=== PATIENT | female | born 1945 | race Caucasian/White ===

== ENCOUNTER 2017-01-16 08:40 | Outpatient (CLI) | payer OTHER | END 2017-01-16 08:41 | LOC: NAVSJIPCSP 08:40 | PROVIDERS: ATTEND Internal Medicine | DX: E78.5 Hyperlipidemia, unspecified (principal) | CPT/HCPCS: 36415; 80061 ==

== ENCOUNTER 2017-02-14 19:38 | Emergency (ER) | payer MEDICARE, OTHER ==
[2017-02-14] MEDS ORDERED: Metoclopramide HCl 10 MG/2 ML VIAL ONE (20:47)
[2017-02-14] MEDS ORDERED: Ketorolac Tromethamine 30 MG/ML VIAL ONE (20:47)
[2017-02-14] MEDS ORDERED: diphenhydrAMINE HCl 50 MG/ML 1 ML VIAL ONE (20:47)
[2017-02-14] MEDS ORDERED: Dexamethasone 4 mg/ml Vial ONE (22:30)
== END 2017-02-14 22:42 | disposition home or self-care (01) ==
LOC: NAV ERS 19:38
DX: G43.919 Migraine, unspecified, intractable, without status migrainosus (principal); I10 Essential (primary) hypertension; F17.210 Nicotine dependence, cigarettes, uncomplicated; Z79.899 Other long term (current) drug therapy
CPT/HCPCS: 96361; 96372; 96374; 96375; J1100; J1200; J1885; J2765

== ENCOUNTER 2017-06-26 09:09 | Outpatient (CLI) | payer MEDICARE ==
[2017-06-26 12:33] LABS: Bilirubin Negative (Negative); Blood, Urine Negative (Negative); Clarity Slightly Cloudy (Clear); Glucose, Urine (Dipstick) Negative (Negative); Leukocyte Large (Negative); Nitrite Positive (Negative); Protein, Urine (Dipstick) Negative (Neg-Trace); Specific Gravity, Urine 1.015 (1.005-1.030); Urobilinogen 0.2 mg/dL (0.2-1.0)
[2017-06-26 12:56] LABS: Cardiac Risk 4.1 (Less than 4.5)
[2017-06-26 14:29] LABS: Bacteria/HPF 2+ HPF (None Seen); RBC/HPF 0-3 HPF (0-3); Squamous Epithelial 0-3 HPF (0-3); WBC/HPF 21-50 HPF (0-3)
== END 2017-06-26 09:10 | disposition home or self-care (01) ==
LOC: NAVSJIPCSP 09:09
PROVIDERS: ATTEND Internal Medicine
DX: E78.5 Hyperlipidemia, unspecified (principal); Z79.899 Other long term (current) drug therapy; N39.0 Urinary tract infection, site not specified
CPT/HCPCS: 36415; 80061; 81003; 81015; 87077; 87086

== ENCOUNTER 2017-11-20 15:11 | Emergency (ER) | payer MEDICARE ==
--- NOTE | 2017-11-20 16:20 | RAD ---
PA AND LATERAL CHEST 11/20/17 HISTORY: Shortness of breath and cough. Heart size is within normal limits. There are atherosclerotic changes of the aorta. The lungs are bhavna ar of infiltrates. IMPRESSION: No active intrathoracic disease. POS: [facility]
== END 2017-11-20 16:55 | disposition home or self-care (01) ==
LOC: NAV ERS 15:11
DX: J11.1 Influenza due to unidentified influenza virus with other respiratory manifestations (principal); R06.00 Dyspnea, unspecified; J31.0 Chronic rhinitis; I10 Essential (primary) hypertension; G43.909 Migraine, unspecified, not intractable, without status migrainosus; F17.210 Nicotine dependence, cigarettes, uncomplicated; Z79.899 Other long term (current) drug therapy
CPT/HCPCS: 71020

== ENCOUNTER 2017-11-26 13:08 | Emergency (ER) | payer MEDICARE ==
[2017-11-26] MEDS ORDERED: Sodium Chloride 0.9% 1,000 ML ONE (13:50)
[2017-11-26 14:39] LABS: ALT (SGPT) 53 U/L (8-55); AST (SGOT) 26 U/L (5-34); Albumin 4.2 g/dL (3.4-4.8); Alkaline Phosphatase 143 U/L (40-150); Anion Gap 16 mmol/L (10-20); BUN (Urea Nitrogen) 10 mg/dL (9.8-20.1); Bilirubin, Total 0.4 mg/dL (0.2-1.2); Calc. Creatinine Clearance 0 mL/min (70-130); Carbon Dioxide 23 mmol/L (23-31); Chloride 102 mmol/L (98-107); Estimated GFR-MDRD 74; Globulin 4.1 g/dL (2.4-3.5); Glucose 95 mg/dL (83-110); Potassium 3.4 mmol/L (3.5-5.1); Protein, Total 8.3 g/dL (6.0-8.3); Sodium 138 mmol/L (136-145)
[2017-11-26 14:41] LABS: CKMB 0.6 ng/mL (0-6.6); Troponin I Less than 0.010 ng/mL (< 0.028)
[2017-11-26] MEDS ORDERED: Sodium Chloride 0.9% 100 ML ONE (15:02)
[2017-11-26] MEDS ORDERED: cefTRIAXone\\ROCEPHIN 1 GM VIAL ONE (15:02)
[2017-11-26] MEDS ORDERED: methylPREDNISolone Sod Succ/PF 125 MG/2 ML VIAL ONE (15:02)
--- NOTE | 2017-11-26 15:03 | RAD ---
TWO VIEWS CHEST: Date: 11-26-17 Provided Clinical History: Cough. FINDINGS: Comparison 11-20-17. Cardiac and mediastinal silhouette is unchanged in appearance. Vascular calcification involves the ao rtic arch. No focal consolidation, pleural fluid or pneumothorax apparent. IMPRESSION: No evidence for an acute cardiopulmonary process. POS: [facility]
[2017-11-26 15:11] LABS: #Basophils 0.1 thou/uL (0.0-0.2); #Eosinphils 0.1 thou/uL (0.0-0.7); #Lymphocytes 3.2 thou/uL (1.20-3.40); #Monocytes 0.6 thou/uL (0.11-0.59); #Neutrophils 7.5 thou/uL (1.40-6.50); %Basophils 0.6 % (0.0-1.0); %Eosinophils 0.6 % (0.0-10.0); %Lymphocytes 28.3 % (21.0-51.0); %Monocytes 5.2 % (0.0-10.0); %Neutrophils 65.3 % (42.0-75.0); Hemoglobin 13.1 g/dL (12.0-16.0); Mean Corpuscular HGB CONC 33.8 g/dL (32.0-36.0); Mean Corpuscular Hemoglobin 29.6 pg (27.0-31.0); Mean Corpuscular Volume 87.7 fl (81.0-99.0); Mean Platelet Volume 6.8 fL (7.4-10.4); Platelet Count 493 thou/uL (130-400); RBC Distribution Width 10.5 % (11.5-14.5); Red Blood Cell (RBC) Count 4.43 mill/uL (4.20-5.40); White Blood Cell (WBC) Count 11.4 thou/uL (4.8-10.8)
[2017-11-26 17:10] LABS: Bilirubin Negative (Negative); Blood, Urine Trace (Negative); Clarity Clear (Clear); Glucose, Urine (Dipstick) Negative (Negative); Leukocyte Large (Negative); Nitrite Negative (Negative); Protein, Urine (Dipstick) Negative (Neg-Trace); Urobilinogen 0.2 mg/dL (0.2-1.0)
[2017-11-26 17:20] LABS: RBC/HPF 0-3 HPF (0-3)
[2017-11-26 17:21] LABS: Bacteria/HPF Rare-Few HPF (None Seen); Squamous Epithelial 0-3 HPF (0-3)
== END 2017-11-26 16:12 | disposition home or self-care (01) ==
LOC: NAV ERS 13:08
DX: J20.9 Acute bronchitis, unspecified (principal); J11.1 Influenza due to unidentified influenza virus with other respiratory manifestations; F17.210 Nicotine dependence, cigarettes, uncomplicated; G43.909 Migraine, unspecified, not intractable, without status migrainosus; I10 Essential (primary) hypertension; Z79.899 Other long term (current) drug therapy
CPT/HCPCS: 71020; 80053; 81003; 81015; 82553; 83605; 83880; 84484; 85025; 85379; 87040; 93005; 94640; 94760; 96361; 96365; 96375; J0696; J2930; J7050; J7620

== ENCOUNTER 2018-04-01 10:38 | Emergency (ER) | payer MEDICARE ==
[2018-04-01 11:24] LABS: Bilirubin Negative (Negative); Blood, Urine Negative (Negative); Clarity Clear (Clear); Glucose, Urine (Dipstick) Negative (Negative); Leukocyte Negative (Negative); Nitrite Negative (Negative); Protein, Urine (Dipstick) Negative (Neg-Trace); Urobilinogen 0.2 mg/dL (0.2-1.0)
[2018-04-01 11:25] LABS: #Basophils 0.1 thou/uL (0.0-0.2); #Eosinphils 0.1 thou/uL (0.0-0.7); #Lymphocytes 2.1 thou/uL (1.20-3.40); #Monocytes 0.6 thou/uL (0.11-0.59); #Neutrophils 5.5 thou/uL (1.40-6.50); %Basophils 0.7 % (0.0-1.0); %Eosinophils 0.7 % (0.0-10.0); %Lymphocytes 25.1 % (21.0-51.0); %Monocytes 6.8 % (0.0-10.0); %Neutrophils 66.7 % (42.0-75.0); Mean Corpuscular Hemoglobin 28.1 pg (27.0-31.0); Mean Corpuscular Volume 90.6 fl (81.0-99.0); Mean Platelet Volume 8.5 fL (7.4-10.4); Platelet Count 372 thou/uL (130-400); RBC Distribution Width 11.3 % (11.5-14.5); Red Blood Cell (RBC) Count 4.96 mill/uL (4.20-5.40); White Blood Cell (WBC) Count 8.3 thou/uL (4.8-10.8)
[2018-04-01 11:31] LABS: INR-International Normal Ratio 0.9; PTT 26.2 SEC (22.9-36.1); Prothrombin Time 12.5 SEC (12.0-14.7)
[2018-04-01 11:41] LABS: CKMB 1.2 ng/mL (0-6.6); Troponin I Less than 0.010 ng/mL (< 0.028)
--- NOTE | 2018-04-01 11:49 | RAD ---
PORTABLE CHEST ONE VIEW: Date: 04-01-18 Time: 10:50 a.m. History: Left sided numbness. FINDINGS: The heart size is normal. The lungs are expanded without focal areas of consolidation, pneumothorax, or pleural effusions. IMPRESSION: No radiographic evidence of acute cardiopulmonary process. POS: [facility]
--- NOTE | 2018-04-01 11:51 | CT ---
CT BRAIN WITHOUT CONTRAST: HISTORY: Altered mental status. Left side numbness. FINDINGS: No evidence of infarct, hemorrhage, midline shift, or abnormal extraaxial fluid collections are seen. The ventricular size is normal and the basilar cisterns are patent. The bony calvarium is intact. The visualized paranasal sinuses and mastoid air cells are well aerated. IMPRESSION: No CT evidence of acute intracranial process. POS: [facility]
[2018-04-01 12:10] LABS: ALT (SGPT) 36 U/L (8-55); AST (SGOT) 22 U/L (5-34); Albumin 4.7 g/dL (3.4-4.8); Alkaline Phosphatase 115 U/L (40-150); Anion Gap 15 mmol/L (10-20); BUN (Urea Nitrogen) 11 mg/dL (9.8-20.1); Bilirubin, Total 0.4 mg/dL (0.2-1.2); Calc. Creatinine Clearance 0 mL/min (70-130); Calcium 10.4 mg/dL (7.8-10.44); Carbon Dioxide 24 mmol/L (23-31); Chloride 101 mmol/L (98-107); Estimated GFR-MDRD 76; Globulin 3.7 g/dL (2.4-3.5); Glucose 103 mg/dL (83-110); Potassium 3.9 mmol/L (3.5-5.1); Protein, Total 8.4 g/dL (6.0-8.3); Sodium 136 mmol/L (136-145)
== END 2018-04-01 13:31 | disposition short-term general hospital (02) ==
LOC: NAV ERS 10:38
DX: G45.9 Transient cerebral ischemic attack, unspecified (principal); I10 Essential (primary) hypertension; G43.909 Migraine, unspecified, not intractable, without status migrainosus; Z87.891 Personal history of nicotine dependence; Z79.899 Other long term (current) drug therapy
CPT/HCPCS: 36416; 70450; 71045; 80053; 81003; 82553; 83605; 84484; 85025; 85610; 85730; 93005

== ENCOUNTER 2020-01-17 12:18 | Outpatient (CLI) | payer MEDICARE ==
--- NOTE | 2020-01-17 13:15 | RAD ---
PA AND LATERAL CHEST: Date: 01/17/2020 HISTORY: Dyspnea. COMPARISON: 11/26/2017 study. FINDINGS: Heart size is within normal limits. There are some atherosclerotic changes of the aorta. The lungs ar e clear of infiltrates. No interstitial fibrotic change. There are arthritic changes of the spine. IMPRESSION: No active intrathoracic disease. POS: [facility]
== END 2020-01-17 12:19 | disposition home or self-care (01) ==
LOC: NAV RAD 12:18
PROVIDERS: ATTEND Internal Medicine
DX: R06.09 Other forms of dyspnea (principal); J30.9 Allergic rhinitis, unspecified
CPT/HCPCS: 71046

== ENCOUNTER 2020-12-27 15:21 | Emergency (ER) | payer MEDICARE ==
--- NOTE | 2020-12-27 16:07 | RAD ---
RIGHT KNEE FOUR VIEWS: 12/27/20 HISTORY: Right knee pain. FINDINGS/IMPRESSION: No acute fracture or dislocation is identified. There is chondrocalcinosis. POS: [facility]
== END 2020-12-27 16:25 | disposition home or self-care (01) ==
LOC: NAV ERS 15:21
DX: M25.561 Pain in right knee (principal); I10 Essential (primary) hypertension; Z87.891 Personal history of nicotine dependence; Z79.899 Other long term (current) drug therapy

== ENCOUNTER 2021-04-04 14:32 | Outpatient (CLI) | payer MEDICARE | END 2021-04-04 14:33 | disposition home or self-care (01) | LOC: NAV RAD 14:32 | PROVIDERS: ATTEND Internal Medicine | DX: M54.9 Dorsalgia, unspecified (principal); M47.814 Spondylosis without myelopathy or radiculopathy, thoracic region; M47.816 Spondylosis without myelopathy or radiculopathy, lumbar region | CPT/HCPCS: 72072 ==